=== PATIENT | male | born 2000 | race Two or more races ===

== ENCOUNTER 2018-08-14 17:36 | Emergency (ER) | payer BC, OTHER ==
[~2018-08-14] VITALS: Ht 172.7 cm; Wt 81.6 kg
[2018-08-14 17:46] VITALS: BP 119/63
[2018-08-14] MEDS ORDERED: IPRATROPIUM BROM 0.5 MG/2.5ML INH SOL NEB ONE (19:15)
[2018-08-14] MEDS ORDERED: ALBUTEROL SULF 2.5 MG/0.5ML(0.5%) NEB SOLN NEB ONE (19:15)
== END 2018-08-14 19:35 | disposition home or self-care (01) ==
LOC: ER 17:41
DX: J45.909 Unspecified asthma, uncomplicated (principal)
CPT/HCPCS: 94640; 99283; J7611; J7644

== ENCOUNTER 2018-09-26 03:00 | Emergency (ER) | payer BC ==
[~2018-09-26] VITALS: Ht 170.2 cm; Wt 84.2 kg
[2018-09-26 03:11] VITALS: BP 125/77
== END 2018-09-26 04:14 | disposition home or self-care (01) ==
LOC: ER 03:01
DX: H66.91 Otitis media, unspecified, right ear (principal); J06.9 Acute upper respiratory infection, unspecified